=== PATIENT | male | born 1945 | race Caucasian/White ===

== ENCOUNTER 2019-08-29 08:17 | Day surgery (SDC) | payer MEDICARE, BC ==
[~2019-08-29] VITALS: Ht 188 cm; Wt 106.9 kg
[2019-08-29] VITALS (9 sets, daily range): BP systolic 150–185; BP diastolic 11–115; PULSE 70–90; TEMP 98.5
[2019-08-29] MEDS ORDERED: TOPROL XL 50MG50 MG PO (09:27)
[2019-08-29] MEDS ORDERED: LASIX 20MG TABL20 MG PO (09:27)
[2019-08-29] MEDS ORDERED: K-TAB10 PO (09:28)
[2019-08-29] MEDS ORDERED: GLYNASE PRES-TAB6 MG PO (09:29)
[2019-08-29] MEDS ORDERED: CATAPRES0.2 MG PO (09:29)
[2019-08-29] MEDS ORDERED: ALTACE 10MG TAB10 MG PO (09:30)
[2019-08-29] MEDS ORDERED: GLUCOPHAGE1000 MG PO (09:31)
[2019-08-29] MEDS ORDERED: GLUCOPHAGE500 MG/TAB PO (09:31)
[2019-08-29] MEDS ORDERED: ZOCOR 20MG20 MG PO (09:32)
[2019-08-29] MEDS ORDERED: ASPIRIN E.C. 8181 MG PO (09:32)
[2019-08-29] MEDS ORDERED: NORVASC 5MG5 MG/TAB PO (09:32)
[2019-08-29] MEDS ORDERED: TRULICITY1.5 MG/0.5 SQ (09:33)
[2019-08-29 09:47] LABS: HEMATOCRIT 44.4 % (42.0-52.0); HEMOGLOBIN 14.7 g/dl (13.5-18.0); MEAN CELL VOLUME 87 fl (80.0-100.0); MEAN CORPUSCULAR HEMOGLOBIN 29 pg (27.0-31.0); MEAN CORPUSCULAR HGB CONC 33 g/dl (33.0-37.0); MEAN PLATELET VOLUME 11.5 fl (7.4-10.4); PLATELET COUNT 299 K/mm3 (130-400); REDCELL DISTRIBUTION WIDTH-CV 12.9 % (11.5-14.5)
[2019-08-29 09:53] LABS: INR 1.1 (0.8-3.0)
[2019-08-29 09:56] LABS: PARTIAL THROMBOPLASTIN TIME 33.8 SECONDS (26.0-37.0)
[2019-08-29 09:59] LABS: CALCIUM 9.9 mg/dL (8.4-10.2); CREATININE, serum 0.51 (0.66-1.25); POTASSIUM 3.8 mmol/L (3.4-5.0)
--- NOTE | 2019-08-29 10:24 | NUR ---
SEE MERE[facility] FOR ALL MEDICATION ADMIN TIMES AND INTRA AND POST SEDATION ASESSMENT
--- NOTE | 2019-08-29 12:45 | NUR ---
Pt back from [employer] at 1055. he has been awake and alert since his return. TR band in place, site looks good, cms intact distal, no hematoma or bleeding. Pt has been hypertensive, I lost all vitals from monitor between 1100 and 1245, pt was running 170's/90-100's. Dr. Steven aware, he has been in to see pt, no new orders received.
--- NOTE | 2019-08-29 15:25 | NUR ---
Pt did well today, he is ready for departure. rt radial site dressed with bandaid. IV dc'd cath intact, dressing applied. I reviewed dc/fu instructions with pt, he denied any questions at time of departure. he is escorted to exit via wheelchair.
== END 2019-08-29 15:25 | disposition home or self-care (01) ==
LOC: COL.CAR 08:17
PROVIDERS: Internal Medicine Cardiovascular Disease
DX: I25.10 Atherosclerotic heart disease of native coronary artery without angina pectoris (principal); I10 Essential (primary) hypertension; E78.5 Hyperlipidemia, unspecified; E66.9 Obesity, unspecified; Z79.82 Long term (current) use of aspirin; R94.39 Abnormal result of other cardiovascular function study; M79.604 Pain in right leg; M79.605 Pain in left leg
CPT/HCPCS: J1644; J2250; J3010

== ENCOUNTER 2019-09-06 04:08 | Emergency (ER) | payer MEDICARE, BC ==
[~2019-09-06] VITALS: Ht 188 cm; Wt 107.3 kg
[~2019-09-06 04:08] MED LIST: ALTACE 10MG TAB10 MG PO; ASPIRIN E.C. 8181 MG PO; CATAPRES0.2 MG PO; GLUCOPHAGE1000 MG PO; GLUCOPHAGE500 MG/TAB PO; GLYNASE PRES-TAB6 MG PO; K-TAB10 PO; LASIX 20MG TABL20 MG PO; NORVASC 5MG5 MG/TAB PO; TOPROL XL 50MG50 MG PO; TRULICITY1.5 MG/0.5 SQ; ZOCOR 20MG20 MG PO
[2019-09-06 04:51] VITALS: TEMP 98
[2019-09-06 06:05] LABS: BASO # 0.1 (0.0-0.2); BASO % 0.3 % (0.0-2.0); EOS % 0.2 % (0-4.0); GRAN # 12.8 (1.4-6.5); GRAN % 76.5 % (42.2-75.2); HEMOGLOBIN 14.3 g/dl (13.5-18.0); LYMPH # 2.3 (1.2-3.4); LYMPH % 13.9 % (20.0-51.0); MEAN CELL VOLUME 87 fl (80.0-100.0); MEAN CORPUSCULAR HEMOGLOBIN 29 pg (27.0-31.0); MEAN CORPUSCULAR HGB CONC 33 g/dl (33.0-37.0); MEAN PLATELET VOLUME 11.5 fl (7.4-10.4); MONO # 1.4 (0.1-0.6); MONO % 8.6 % (1.7-9.3); PLATELET COUNT 271 K/mm3 (130-400); RED BLOOD COUNT 4.93 M/mm3 (4.20-5.60)
[2019-09-06 06:11] LABS: INR 1.2 (0.8-3.0); PROTHROMBIN TIME 12.9 SECONDS (9.7-12.8)
[2019-09-06 06:15] LABS: ALANINE AMINOTRANSFERASE 17 U/L (4-49); ALBUMIN 4.2 gm/dL (3.5-5.0); ALKALINE PHOSPHATASE 113 U/L (50-136); ANION GAP 9 mmol/L (7-16); AST,SGOT 19 U/L (15-37); BILIRUBIN,TOTAL 0.6 mg/dL (0.0-1.0); BLOOD UREA NITROGEN 15 mg/dL (9-20); CALCIUM 9.9 mg/dL (8.4-10.2); CARBON DIOXIDE 28 mmol/L (22-30); CHLORIDE 100 mmol/L (98-107); CREATININE, serum 0.44 (0.66-1.25); GLUCOSE 178 mg/dL (74-106); POTASSIUM 3.8 mmol/L (3.4-5.0); SODIUM 138 mmol/L (137-145); TOTAL PROTEIN 7.8 gm/dL (6.4-8.2)
[2019-09-06 06:37] LABS: TROPONIN-I < 0.012 ng/mL (0.000-0.035)
[2019-09-06] MEDS ORDERED: CEPHALEXIN500 M1 PO (09:01)
[2019-09-06 09:40] VITALS: BP 174/101; PULSE 94
== END 2019-09-06 09:44 | disposition home or self-care (01) ==
LOC: COL.ER 04:08
PROVIDERS: Emergency Medicine
DX: S16.1XXA Strain of muscle, fascia and tendon at neck level, initial encounter (principal); R91.1 Solitary pulmonary nodule; E27.9 Disorder of adrenal gland, unspecified; E11.9 Type 2 diabetes mellitus without complications; I10 Essential (primary) hypertension; E78.5 Hyperlipidemia, unspecified; Z79.84 Long term (current) use of oral hypoglycemic drugs; Z79.82 Long term (current) use of aspirin; X58.XXXA Exposure to other specified factors, initial encounter
CPT/HCPCS: J1170; J1885; J2405; J3010; J3360; J7030; Q9967